=== PATIENT | female | born 1950 | race Caucasian/White ===

== ENCOUNTER → 2016-05-17 | Outpatient (CLI) | payer BC, OTHER ==
--- NOTE | ~2016-05-17 | S ---
[facility] [place] [address] SURGICAL PATH RPT PROCEDURE Name: ANNETTE LUISETTE Pee Room #: REG [facility].#: [id number] Admission: 05/17/16 Date of : 54 Discharge: Report #: [id number] Path Case #: [id number] PATHOLOGY REPORT COLLECTION DATE: 05/17/2016 RECEIVED DATE: 05/17/2016 SUBMITTING PHYS: Dr. Aaron Zendejas OTHER PHYS: Dr. Jonh Mejía SPECIMEN(S) RECEIVED: A.Stereo left central * * * * * * * * * * * * FINAL DIAGNOSIS: "Stereo left central," stereotactic-guided needle biopsy: - Breast tissue with fibrocystic changes including stromal fibrosis, cyst formation, cystic apocrine metaplasia, adenosis, columnar cell hyperplasia, and minute focus of atypical lobular hyperplasia with scattered microcalcifications present. (see comment) COMMENT: Director Of Product Management slides are co-reviewed with Dr. Ainsley Dalal. (CLW:; d/t: 05/18/16) PATHOLOGIST: Martha Arciniega M.D. REPORT ELECTRONICALLY SIGNED BY: Martha Arciniega M.D. DATE/TIME: 05/18/2016 16:13 * * * * * * * * * * * * GROSS PATHOLOGY: Received in formalin labeled "Bernardo LuisEstelle" and additionally labeled "stereo left central breast" on the requisition are multiple needle cores of yellow-zavala fibrofatty tissue measuring 4.3 x 3.3 x 0.5 cm in aggregate dimensions. Also received is a plastic cassette containing multiple cores of yellow-zavala fibrofatty tissue measuring 2.5 x 2.4 x 0.5 cm in aggregate dimensions. The tissue in the cassette is transferred to cassette A1, and the remaining tissue is submitted in its entirety in cassettes A2-A4. The cold ischemic time is 10 minutes. The total formalin fixation time is 11 hours and 55 minutes. (TTL; 05/17/2016) CLINICAL HISTORY: [address] [address] SURGICAL PATH RPT PROCEDURE Name: TREVESTELLE H Room #: REG [facility] Arnie.#: [id number] Admission: 05/17/16 Date of : 54 Discharge: Report #: [id number] Path Case #: [id number] INITIAL CPT CODE(S): A; 77594 Professional services performed by [facility] [address], [place] [address] Technical services performed by [facility] at [address] [place] [address], [facility] [address] [address]. [facility] [place] [address] PHONE: [phone] DIRECTOR: Robert Leo M.D. * * * END OF REPORT * * *
== END | disposition home or self-care (01) ==
LOC: RAD 08:35
DX: N60.92 Unspecified benign mammary dysplasia of left breast (principal); R92.0 Mammographic microcalcification found on diagnostic imaging of breast; N60.12 Diffuse cystic mastopathy of left breast